=== PATIENT | male | born 1960 | race Caucasian/White ===

== ENCOUNTER 2024-03-28 08:57 | Emergency (ER) | payer OTHER ==
[2024-03-28 09:47] LABS: BASOPHILS ABSOLUTE AUTO 0.06 K/uL (0.02-0.10); BASOPHILS PERCENT AUTO 0.7 % (0.0-0.5); EOSINOPHILS ABSOLUTE AUTO 0.16 K/uL (0.04-0.40); EOSINOPHILS PERCENT AUTO 1.8 % (1.0-5.0); HEMATOCRIT 42.2 % (40.0-54.0); HEMOGLOBIN 14.1 g/dL (13.0-18.0); LYMPHOCYTES ABSOLUTE AUTO 1.79 K/uL (1.50-4.00); LYMPHOCYTES PERCENT AUTO 20.2 % (20.0-40.0); MEAN CORPUSCULAR HEMOGLOBIN 28.5 pg (27.0-32.0); MEAN CORPUSCULAR HGB CONC 33.4 g/dL (31.0-35.0); MEAN CORPUSCULAR VOLUME 85 fL (76-96); MEAN PLATELET VOLUME 10.2 fL (6.0-10.0); MONOCYTES PERCENT AUTO 12.4 % (3.0-10.0); NEUTROPHILS ABSOLUTE AUTO 5.73 K/uL (2.00-7.50); NEUTROPHILS PERCENT AUTO 64.9 % (45.0-70.0); PLATELET COUNT,PLT 205 K/uL (150-400); RED BLOOD CELL COUNT 4.94 M/uL (4.50-6.50); WHITE BLOOD CELL COUNT,WBC 8.8 K/uL (4.0-11.0)
[2024-03-28 10:06] LABS: ANION GAP 13.8 mmol/L (5.0-15.0); BUN/CREATININE RATIO 23.8 (6-25); CALCIUM 9.4 mg/dL (8.5-10.1); CARBON DIOXIDE,CO2 28.3 mmol/L (21.0-32.0); CREATININE 0.84 mg/dL (0.70-1.30); EST CRCL DRUG DOSING (CG) 91.73 mL/min; POTASSIUM,K 4.1 mmol/L (3.5-5.1); TROPONIN I HIGH SENSITIVITY 5.7 pg/ml (<=60.4)
[2024-03-28 10:28] LABS: INFLUENZA A NAA NEGATIVE (NEGATIVE); INFLUENZA B NAA NEGATIVE (NEGATIVE); RESPIRATORY SYNCYTIAL VIR NAA NEGATIVE (NEGATIVE)
[2024-03-28] MEDS: Albuterol 0.083% 2.5 MG/3 ML Neb Soln NEB ONE (10:37)
[2024-03-28 10:43] LABS: CORONAVIRUS COVID-19 NAA NEGATIVE (NEGATIVE)
[2024-03-28 11:07] VITALS: BP 136/77; PULSE 73
[2024-03-30] MEDS: Albuterol 0.083% 2.5 MG/3 ML Neb Soln ONE (10:05)
[2024-03-30] MEDS: Ondansetron 4 MG Tab.DIS PO ONE (10:05)
== END 2024-03-28 10:55 | disposition home or self-care (01) ==
LOC: LB.ED 08:57
DX: J04.2 Acute laryngotracheitis (principal); R05.2 Subacute cough; Z79.899 Other long term (current) drug therapy; Z88.0 Allergy status to penicillin
CPT/HCPCS: 0241U; 36415; 71045; 80048; 84484; 85025; 93005; 93010; 94640; 99284